=== PATIENT | female | born 1985 | race African-American/Black ===

== ENCOUNTER 2016-09-12 02:09 | Emergency (ER) | payer MEDICAID ==
[~2016-09-12] VITALS: Ht 162.6 cm; Wt 96.0 kg
[2016-09-12] MEDS ORDERED: FAMOTIDINE 20MG/2ML VIAL IV ONE (04:00)
[2016-09-12] MEDS ORDERED: SODIUM CHLORIDE 0.9% 1,000 ML IV ONE (04:00)
[2016-09-12] MEDS ORDERED: ONDANSETRON HCL 4MG/2ML VIAL IV ONE (04:00)
[2016-09-12 04:17] LABS: GLUCOSE URINE NEGATIVE (NEGATIVE); KETONES URINE NEGATIVE (NEGATIVE); LEUKOCYTE ESTERASE URINE 3+ (NEGATIVE); NITRITE URINE NEGATIVE (NEGATIVE); OCCULT BLOOD URINE TRACE (NEGATIVE); PROTEIN URINE NEGATIVE (NEGATIVE); SPECIFIC GRAVITY URINE 1.019 (1.005-1.030); UROBILINOGEN URINE 0.2 E.U./dL (0.2-1.0)
[2016-09-12 04:20] LABS: CLARITY URINE CLOUDY (CLEAR); COLOR URINE YELLOW (YELLOW)
[2016-09-12 04:31] LABS: BASOPHILS % 0.5 % (0.0-2.0); EOSINOPHILS % 2.1 % (0.0-5.0); HEMATOCRIT. 34.9 % (36.0-48.0); HEMOGLOBIN. 11.6 g/dL (12.0-16.0); LYMPHOCYTES % 49.8 % (20.0-50.0); MEAN CORPUSCULAR HEMOGLOBIN 25.8 pg (28.0-32.0); MEAN PLATELET VOLUME 7.5 fl (7.4-10.4); MONOCYTES % 9.4 % (2.0-8.0); NEUTROPHILS % 38.2 % (40.0-76.0); PLATELET 214 x1000/uL (130-400); RED BLOOD CELL COUNT 4.47 mill/uL (4.2-5.4)
[2016-09-12 04:46] LABS: CARBON DIOXIDE 26 mEq/L (21-32); CHLORIDE 106 mEq/L (98-107)
[2016-09-12 09:59] VITALS: BP 112/66
== END 2016-09-12 10:06 | disposition home or self-care (01) ==
LOC: ER 02:09
DX: N39.0 Urinary tract infection, site not specified (principal); R19.7 Diarrhea, unspecified; R10.13 Epigastric pain; R11.0 Nausea; R51 Headache; Z88.0 Allergy status to penicillin; F12.90 Cannabis use, unspecified, uncomplicated
CPT/HCPCS: 36415; 76705; 80053; 81001; 81025; 83690; 85025; 96361; 96374; 96375; 99285; J2405; J3490; J7030; Z7610